=== PATIENT | male | born 1985 | race Caucasian/White ===

== ENCOUNTER 2019-02-19 20:52 | Emergency (ER) | payer SELFPAY ==
[~2019-02-19] VITALS: Ht 180.3 cm; Wt 69.5 kg
[2019-02-19 20:53] VITALS: BP 109/60
--- NOTE | 2019-02-19 21:15 | NUR ---
PT STATES HE HAS BACK PAIN X20 YEARS, GETTING WORSE OVER TIME. PT STATES PAIN IS "ALL OVER" HIS BACK. PAIN IN BOTH FEET.
[2019-02-19] MEDS ORDERED: IBUPROFEN 600 MG TABLET ONE (21:27)
[2019-02-19] MEDS ORDERED: IBUPROFEN 200 MG TABLET PO ONE (21:30)
== END 2019-02-19 21:38 | disposition home or self-care (01) ==
LOC: ED 21:32
DX: G89.29 Other chronic pain (principal); M54.5 Low back pain; M79.671 Pain in right foot; F17.200 Nicotine dependence, unspecified, uncomplicated
CPT/HCPCS: 99283